=== PATIENT | female | born 1960 | race African-American/Black ===

== ENCOUNTER 2017-01-16 12:24 | Emergency (ER) | payer MEDICAID ==
[~2017-01-16] VITALS: Ht 154.9 cm; Wt 69.3 kg
[~2017-01-16 12:24] MED LIST: AMLO10TA4 PO; ASPI-1035 PO; CLON0.2T PO; INSLAN SQ; LISI40TA4 PO
[2017-01-16 13:51] LABS: EOSINOPHILS % 4.4 % (0.0-5.0); HEMATOCRIT. 36.6 % (36.0-48.0); HEMOGLOBIN. 12.1 g/dL (12.0-16.0); LYMPHOCYTES % 23.8 % (20.0-50.0); MEAN CORPUSCULAR HEMOGLOBIN 27.3 pg (28.0-32.0); MEAN CORPUSCULAR HGB CONC 33.1 g/dL (31.0-37.0); MEAN CORPUSCULAR VOLUME 82.6 fL (81.0-99.0); MEAN PLATELET VOLUME 8.3 fl (7.4-10.4); MONOCYTES % 5.4 % (2.0-8.0); NEUTROPHILS % 65.4 % (40.0-76.0); PLATELET 226 x1000/uL (130-400); RED BLOOD CELL COUNT 4.43 mill/uL (4.2-5.4); RED CELL DISTRIBUTION WIDTH 17.9 % (11.6-14.6)
[2017-01-16 13:55] LABS: CHLORIDE 95 mEq/L (98-107); INDEX HEMOLYSI 2 (1-3); INDEX ICTERIC 1 (1-4); INDEX LIPEMIC 1 (1-3)
[2017-01-16 14:00] LABS: INR 1.2; PROTHROMBIN TIME 12.9 sec
[2017-01-16 14:01] LABS: ALBUMIN 2.9 g/dL (3.4-5.0); ANION GAP 8; CALCIUM 8.7 mg/dL (8.5-10.1); CARBON DIOXIDE 34 mEq/L (21-32)
[2017-01-16 14:04] LABS: ALANINE AMINOTRANSFERASE 19 IU/L (13-61); eGFR 12 mL/min (>60)
[2017-01-16 14:07] LABS: UREA NITROGEN BLOOD 4 mg/dL (7-21)
[2017-01-16] MEDS ORDERED: LISINOPRIL 40MG TABLET PO ONE (17:00)
[2017-01-16] MEDS ORDERED: CLONIDINE 0.2MG TABLET PO ONE (17:00)
[2017-01-16] MEDS ORDERED: HYDRALAZINE 20MG/ML VIAL IV ONE (17:00)
[2017-01-16 17:45] VITALS: BP 180/66
== END 2017-01-16 18:10 | disposition home or self-care (01) ==
LOC: ER 13:34
DX: M79.645 Pain in left finger(s) (principal); N18.6 End stage renal disease; I12.0 Hypertensive chronic kidney disease with stage 5 chronic kidney disease or end stage renal disease; F12.10 Cannabis abuse, uncomplicated; E11.9 Type 2 diabetes mellitus without complications; Z99.2 Dependence on renal dialysis; Z79.82 Long term (current) use of aspirin; Z79.4 Long term (current) use of insulin
CPT/HCPCS: 36415; 73130; 80053; 85025; 85610; 87040; 99285

== ENCOUNTER 2017-06-03 14:12 | Inpatient (IN) | payer MEDICAID ==
[~2017-06-03] VITALS: Ht 154.9 cm; Wt 61.2 kg
[~2017-06-03 14:12] MED LIST changes: -ASPI-1035 PO; +ASPI-1159 PO; -CLON0.2T PO; -INSLAN SQ
[2017-06-03 16:46] LABS: HEMATOCRIT. 36.1 % (36.0-48.0); HEMOGLOBIN. 11.8 g/dL (12.0-16.0); MEAN CORPUSCULAR HEMOGLOBIN 28.1 pg (28.0-32.0); MEAN CORPUSCULAR VOLUME 85.9 fL (81.0-99.0); MEAN PLATELET VOLUME 8.3 fl (7.4-10.4); PLATELET 122 x1000/uL (130-400); RED CELL DISTRIBUTION WIDTH 16.6 % (11.6-14.6)
[2017-06-03 16:52] LABS: INR 1.5; PARTIAL THROMBOPLASTIN TIME 30.8 sec (23.4-31.0); PROTHROMBIN TIME 15.3 sec (9.4-11.6)
[2017-06-03 16:57] LABS: CARBON DIOXIDE 33 mEq/L (21-32); CHLORIDE 96 mEq/L (98-107); PHOSPHORUS 3.7 mg/dL (2.5-4.9)
[2017-06-03 17:02] LABS: TROPONIN I 0.02 ng/mL (0.00-0.04)
[2017-06-03 17:57] LABS: PLATELET ESTIMATE SLIGHTLY DECREASED
[2017-06-03] MEDS ORDERED: ACETAMINOPHEN 325MG TABLET PO STA (17:58)
[2017-06-03] MEDS ORDERED: SODIUM CHLORIDE 0.9% 500 ML IV ONE (17:58)
[2017-06-03] MEDS ORDERED: VANCOMYCIN 1 G PREMIX 200 ML IV ONE (18:00)
[2017-06-03] MEDS ORDERED: PIPERACILLIN/TAZ 3.375G PREMIX 50 ML IV ONE (18:00)
[2017-06-03] MEDS ORDERED: MORPHINE SULFATE 2 MG/ML CPJ (NOT FOR IM USE) IV ONE (18:45)
[2017-06-03] MEDS ORDERED: MORPHINE SULFATE 4 MG/ML CPJ (NOT FOR IM USE) IV NR (20:00)
[2017-06-04] VITALS (7 sets, daily range): BP systolic 88–106; BP diastolic 48–70
[2017-06-04] MEDS ORDERED: PIPERACILLIN/TAZ 3.375G PREMIX 50 ML IV SCH (02:00)
[2017-06-04] MEDS ORDERED: HYDROCODONE/ACETAMINOPHEN 5/325MG TABLET PO PRN (02:00)
[2017-06-04] MEDS ORDERED: CLONIDINE 0.1MG TABLET PO PRN (02:00)
[2017-06-04] MEDS: PIPERACILLIN/TAZ 2.25G PREMIX 50 ML IV SCH ×2 (04:27→20:35)
[2017-06-04] MEDS: DEXTROSE 50% WATER 50ML SYRINGE IV PRN (06:02)
[2017-06-04] MEDS: BLOOD SUGAR DIAGNOSTIC STRIP TEST SCH ×2 (06:08→20:48)
[2017-06-04] MEDS: INSULIN LISPRO 100 UNITS/ML SUBCUT SCH ×2 (06:08→20:48)
[2017-06-04 07:13] LABS: BASOPHILS % 0.1 % (0.0-2.0); EOSINOPHILS % 0.9 % (0.0-5.0); HEMOGLOBIN. 11.2 g/dL (12.0-16.0); LYMPHOCYTES % 8.5 % (20.0-50.0); MEAN CORPUSCULAR HEMOGLOBIN 27.9 pg (28.0-32.0); MONOCYTES % 6.1 % (2.0-8.0); NEUTROPHILS % 84.4 % (40.0-76.0); PLATELET 80 x1000/uL (130-400); RED BLOOD CELL COUNT 4.01 mill/uL (4.2-5.4); RED CELL DISTRIBUTION WIDTH 17.3 % (11.6-14.6)
[2017-06-04 07:41] LABS: MEAN CORPUSCULAR VOLUME 88.8 fL (81.0-99.0)
[2017-06-04] MEDS: AMLODIPINE 10MG TABLET PO SCH (09:00)
[2017-06-04] MEDS: HEPARIN 5000 UNITS/ML VIAL SUBCUT SCH ×2 (10:37→21:43)
[2017-06-04] MEDS: ASPIRIN 81MG EC TABLET PO SCH (10:38)
[2017-06-04] MEDS: LISINOPRIL 40MG TABLET PO SCH (10:39)
[2017-06-04] MEDS: ACETAMINOPHEN 325MG TABLET PO PRN ×2 (12:43→20:34)
[2017-06-04] MEDS: DEXT 5%/0.45% NACL 1000ML 1,000 ML IV SCH (21:43)
[2017-06-05] VITALS: BP 95/55
[2017-06-05 04:00] VITALS: BP 96/51
[2017-06-05] MEDS: PIPERACILLIN/TAZ 2.25G PREMIX 50 ML IV SCH ×3 (04:00→20:51)
[2017-06-05] MEDS: BLOOD SUGAR DIAGNOSTIC STRIP TEST SCH ×4 (05:45→20:53)
[2017-06-05] MEDS: INSULIN LISPRO 100 UNITS/ML SUBCUT SCH ×4 (05:47→20:53)
[2017-06-05 07:30] LABS: PHOSPHORUS 3.8 mg/dL (2.5-4.9)
[2017-06-05 08:25] VITALS: BP 91/54
[2017-06-05] MEDS: AMLODIPINE 10MG TABLET PO SCH (09:00)
[2017-06-05] MEDS: HEPARIN 5000 UNITS/ML VIAL SUBCUT SCH (09:00)
[2017-06-05] MEDS: LISINOPRIL 40MG TABLET PO SCH (09:00)
[2017-06-05] MEDS: FOLIC ACID/VITAMIN B COMP W-C TABLET PO SCH (09:39)
[2017-06-05] MEDS: ASPIRIN 81MG EC TABLET PO SCH (09:39)
[2017-06-05 09:44] LABS: BASOPHILS % 0.1 % (0.0-2.0); EOSINOPHILS % 0.2 % (0.0-5.0); HEMATOCRIT. 34.5 % (36.0-48.0); LYMPHOCYTES % 8.5 % (20.0-50.0); MEAN CORPUSCULAR HEMOGLOBIN 27.6 pg (28.0-32.0); MEAN CORPUSCULAR VOLUME 86.6 fL (81.0-99.0); MEAN PLATELET VOLUME 8.5 fl (7.4-10.4); NEUTROPHILS % 83.2 % (40.0-76.0); RED BLOOD CELL COUNT 3.99 mill/uL (4.2-5.4); RED CELL DISTRIBUTION WIDTH 17.4 % (11.6-14.6)
[2017-06-05 09:54] LABS: PLATELET 47 x1000/uL (130-400)
[2017-06-05 10:25] LABS: PLATELET ESTIMATE MARKEDLY DECREASED
[2017-06-05 12:00] VITALS: BP 100/61
[2017-06-05] MEDS ORDERED: VANCOMYCIN 750 MG PREMIX 150 ML IV NR (14:00)
[2017-06-05] MEDS ORDERED: SODIUM CHLORIDE 0.9% 250 ML IV ONE (15:45)
[2017-06-05] MEDS: DEXT 5%/0.45% NACL 1000ML 1,000 ML IV SCH (16:23)
[2017-06-05 16:47] VITALS: BP 84/45
[2017-06-05 20:00] VITALS: BP 92/53
[2017-06-05 20:37] LABS: TOTAL IRON BINDING CAPACITY 186 ug/dL (250-450)
[2017-06-05 20:59] LABS: FERRITIN 526 ng/mL (10-291)
[2017-06-05 21:11] LABS: HEPATITIS B SURFACE ANTIGEN NEGATIVE
[2017-06-05 21:38] LABS: HEPATITIS B CORE AB IGM NEGATIVE
[2017-06-05 21:39] LABS: HEPATITIS A AB IGM NEGATIVE (NEGATIVE)
[2017-06-05] MEDS: GABAPENTIN 300MG CAPSULE PO SCH (22:00)
[2017-06-05 22:16] LABS: VITAMIN B12 SERUM > 2000.0 pg/mL (211-911)
[2017-06-06] VITALS (7 sets, daily range): BP systolic 80–95; BP diastolic 43–54
[2017-06-06] MEDS: PIPERACILLIN/TAZ 2.25G PREMIX 50 ML IV SCH (04:29)
[2017-06-06 06:51] LABS: BASOPHILS % 0.1 % (0.0-2.0); EOSINOPHILS % 0.7 % (0.0-5.0); HEMATOCRIT. 33.2 % (36.0-48.0); HEMOGLOBIN. 10.9 g/dL (12.0-16.0); LYMPHOCYTES % 15.1 % (20.0-50.0); MEAN CORPUSCULAR VOLUME 85.2 fL (81.0-99.0); MEAN PLATELET VOLUME 8.7 fl (7.4-10.4); MONOCYTES % 5.1 % (2.0-8.0); RED CELL DISTRIBUTION WIDTH 17.4 % (11.6-14.6)
[2017-06-06] MEDS: BLOOD SUGAR DIAGNOSTIC STRIP TEST SCH ×4 (07:10→21:12)
[2017-06-06] MEDS: INSULIN LISPRO 100 UNITS/ML SUBCUT SCH ×4 (07:26→21:00)
[2017-06-06] MEDS: GABAPENTIN 300MG CAPSULE PO SCH ×3 (07:34→23:01)
[2017-06-06 08:05] LABS: PLATELET 45 x1000/uL (130-400)
[2017-06-06] MEDS: ACETAMINOPHEN 325MG TABLET PO PRN (09:30)
[2017-06-06] MEDS: FOLIC ACID/VITAMIN B COMP W-C TABLET PO SCH (09:30)
[2017-06-06] MEDS ORDERED: CEFAZOLIN SODIUM 1000MG/VIAL IV SCH (14:00)
[2017-06-06] MEDS ORDERED: CEFAZOLIN 1000MG PREMIX 50 ML IV NR (14:30)
[2017-06-06] MEDS ORDERED: SODIUM CHLORIDE 0.9% 250 ML IV NR (20:30)
[2017-06-06] MEDS ORDERED: ALBUMIN HUMAN 12.5GM/50ML (25%) IV NR (21:00)
[2017-06-06] MEDS: DEXT 5%/0.45% NACL 1000ML 1,000 ML IV SCH (23:00)
[2017-06-07] VITALS (12 sets, daily range): BP systolic 73–147; BP diastolic 35–70
[2017-06-07] MEDS: GABAPENTIN 300MG CAPSULE PO SCH ×3 (06:19→22:00)
[2017-06-07 06:49] LABS: BASOPHILS % 0.1 % (0.0-2.0); EOSINOPHILS % 0.8 % (0.0-5.0); HEMOGLOBIN. 10.6 g/dL (12.0-16.0); LYMPHOCYTES % 17.4 % (20.0-50.0); MEAN CORPUSCULAR HEMOGLOBIN 28.1 pg (28.0-32.0); MEAN CORPUSCULAR VOLUME 84.7 fL (81.0-99.0); MEAN PLATELET VOLUME 8.6 fl (7.4-10.4); MONOCYTES % 4.4 % (2.0-8.0); NEUTROPHILS % 77.3 % (40.0-76.0); RED BLOOD CELL COUNT 3.78 mill/uL (4.2-5.4); RED CELL DISTRIBUTION WIDTH 17.2 % (11.6-14.6)
[2017-06-07 06:56] LABS: PLATELET 26 x1000/uL (130-400)
[2017-06-07 07:16] LABS: PHOSPHORUS 3.6 mg/dL (2.5-4.9)
[2017-06-07] MEDS: BLOOD SUGAR DIAGNOSTIC STRIP TEST SCH ×4 (07:31→21:00)
[2017-06-07] MEDS: INSULIN LISPRO 100 UNITS/ML SUBCUT SCH ×4 (08:00→21:00)
[2017-06-07] MEDS: FOLIC ACID/VITAMIN B COMP W-C TABLET PO SCH (08:51)
[2017-06-07] MEDS ORDERED: LIDOCAINE HCL 1% 20ML VIAL (Pyxis) INJ ONE ×2 (11:08→14:55)
[2017-06-07] MEDS ORDERED: MIDODRINE HCL 5MG TABLET PO NR (11:30)
[2017-06-07] MEDS ORDERED: SODIUM CHLORIDE 0.9% 250 ML IV ONE (11:30)
[2017-06-07 13:50] LABS: PLATELET ESTIMATE MARKEDLY DECREASED
[2017-06-07 14:39] LABS: BG BASE EXCESS -0.5 mmol/L (-2.0-2.0); BG CARBOXYHEMOGLOBIN 0.7 % (0.5-1.5); BG DEOXYHEMOGLOBIN 14.7 % (0.0-5.0); BG FRACTION INSPIRED OXYGEN 28; BG HCO3 ACT 25.8 mmol/L (22.0-26.0); BG METHEMOGLOBIN 0.2 % (0.0-1.5); BG OXYGEN SATURATION 85.2 % (92.0-98.5); BG OXYHEMOGLOBIN 84.4 % (94.0-97.0); BG PCO2 49.4 mmHg (35.0-45.0); BG PH 7.336 (7.350-7.450); BG PO2 54.9 mmHg (75.0-100.0); BG SAMPLE SITE RIGHT BRACHIAL; BG TOTAL HEMOGLOBIN 12.6 g/dL (12.0-18.0); BG VENT MODE NASAL CANNULA
[2017-06-07] MEDS ORDERED: IOHEXOL-300 50 ML BOTTLE IV ONE (14:55)
[2017-06-07] MEDS ORDERED: IOHEXOL-300 100 ML BOTTLE ONE (14:55)
[2017-06-07] MEDS ORDERED: SODIUM BICARBONATE 4% (2.4MEQ) 5ML VIAL IV ONE (14:55)
[2017-06-07] MEDS ORDERED: DOPAMINE 400MG PREMIX 250 ML IV SCH (16:45)
[2017-06-07 17:17] LABS: TROPONIN I < 0.02 ng/mL (0.00-0.04)
[2017-06-07 17:18] LABS: CREATINE KINASE MB FRACTION 3.1 ng/mL (0.5-3.6)
[2017-06-07] MEDS: CEFAZOLIN 1000MG PREMIX 50 ML IV SCH (17:37)
[2017-06-07] MEDS: DEXT 5%/0.45% NACL 1000ML 1,000 ML IV SCH (17:37)
[2017-06-07] MEDS ORDERED: ALBUMIN HUMAN 12.5GM/50ML (25%) IV NR (18:00)
[2017-06-08] VITALS (51 sets, daily range): BP systolic 31–154; BP diastolic 13–121
[2017-06-08] MEDS: GABAPENTIN 300MG CAPSULE PO SCH ×3 (06:00→22:00)
[2017-06-08 06:31] LABS: HEMATOCRIT. 30.1 % (36.0-48.0); HEMOGLOBIN. 9.9 g/dL (12.0-16.0); MEAN CORPUSCULAR HEMOGLOBIN 28.3 pg (28.0-32.0); MEAN CORPUSCULAR VOLUME 86.1 fL (81.0-99.0); MEAN PLATELET VOLUME 8.9 fl (7.4-10.4); RED BLOOD CELL COUNT 3.49 mill/uL (4.2-5.4); RED CELL DISTRIBUTION WIDTH 17.2 % (11.6-14.6)
[2017-06-08 07:17] LABS: PLATELET 35 x1000/uL (130-400)
[2017-06-08] MEDS: BLOOD SUGAR DIAGNOSTIC STRIP TEST SCH ×4 (07:30→21:32)
[2017-06-08] MEDS: INSULIN LISPRO 100 UNITS/ML SUBCUT SCH ×4 (08:38→21:36)
[2017-06-08] MEDS: FOLIC ACID/VITAMIN B COMP W-C TABLET PO SCH (08:39)
[2017-06-08] MEDS: MIDODRINE HCL 5MG TABLET PO SCH ×3 (08:39→17:00)
[2017-06-08] MEDS: PANTOPRAZOLE SODIUM 40 MG/VIAL IV SCH (08:39)
[2017-06-08] MEDS: IPRATROPIUM/ALBUTEROL 0.5-3(2.5)MG/3ML NEB HHN SCH ×3 (08:43→19:45)
[2017-06-08] MEDS ORDERED: ALBUMIN HUMAN 12.5G/250ML (5%) IV NR (09:30)
[2017-06-08 11:40] LABS: NUCLEATED RED BLOOD CELLS 1 /100 WBC; PLATELET ESTIMATE MARKEDLY DECREASED
[2017-06-08] MEDS ORDERED: NOREPINEPHRINE 8 MG in DEXT 5% WATER 242 ML IV PRN (12:00)
[2017-06-08] MEDS: DEXT 5%/0.45% NACL 1000ML 1,000 ML IV SCH (12:34)
[2017-06-08] MEDS ORDERED: ETOMIDATE 2MG/ML 10ML VIAL IV ONE (13:44)
[2017-06-08] MEDS ORDERED: SUCCINYLCHOLINE CHLORIDE 200MG/10ML VIAL IV ONE (13:44)
[2017-06-08] MEDS ORDERED: PHENYLEPHRINE 20 MG in DEXT 5% WATER 498 ML IV PRN (14:00)
[2017-06-08] MEDS ORDERED: SODIUM CHLORIDE 0.9% 250 ML IV NR (14:15)
[2017-06-08 14:33] LABS: BG BASE EXCESS -10.3 mmol/L (-2.0-2.0); BG CARBOXYHEMOGLOBIN 0.4 % (0.5-1.5); BG DEOXYHEMOGLOBIN 16.4 % (0.0-5.0); BG FRACTION INSPIRED OXYGEN 100; BG HCO3 ACT 16.2 mmol/L (22.0-26.0); BG METHEMOGLOBIN 0.3 % (0.0-1.5); BG OXYGEN SATURATION 83.5 % (92.0-98.5); BG OXYHEMOGLOBIN 82.9 % (94.0-97.0); BG PCO2 37.8 mmHg (35.0-45.0); BG PO2 58.9 mmHg (75.0-100.0); BG SAMPLE SITE RIGHT BRACHIAL; BG TOTAL HEMOGLOBIN 12.3 g/dL (12.0-18.0); BG VENT MODE MASK - NRB
[2017-06-08] MEDS ORDERED: PROPOFOL 10MG/ML 100ML 100 ML IV PRN (15:00)
[2017-06-08 15:34] LABS: BG BASE EXCESS -4.8 mmol/L (-2.0-2.0); BG CARBOXYHEMOGLOBIN 0.2 % (0.5-1.5); BG DEOXYHEMOGLOBIN 0.6 % (0.0-5.0); BG FRACTION INSPIRED OXYGEN 100; BG HCO3 ACT 20.4 mmol/L (22.0-26.0); BG METHEMOGLOBIN 0.3 % (0.0-1.5); BG OXYGEN SATURATION 99.4 % (92.0-98.5); BG OXYHEMOGLOBIN 98.9 % (94.0-97.0); BG PCO2 38.4 mmHg (35.0-45.0); BG PH 7.344 (7.350-7.450); BG PO2 207.7 mmHg (75.0-100.0); BG SAMPLE SITE RIGHT BRACHIAL; BG TIDAL VOLUME(mL) 500 mL; BG TOTAL HEMOGLOBIN 12.1 g/dL (12.0-18.0); BG VENT MODE VENT - A/C; BG VENT RATE 12 set
[2017-06-08] MEDS ORDERED: NOREPINEPHRINE 16 MG in DEXT 5% WATER 234 ML IV PRN (16:45)
[2017-06-08] MEDS: CEFAZOLIN 1000MG PREMIX 50 ML IV SCH (18:04)
[2017-06-08 20:24] LABS: HEMATOCRIT 35.6 % (36.0-48.0); HEMOGLOBIN 11.4 g/dL (12.0-16.0)
[2017-06-08 20:37] LABS: PHOSPHORUS 4.8 mg/dL (2.5-4.9)
[2017-06-08] MEDS: PHENYLEPHRINE 40 MG in DEXT 5% WATER 246 ML IV PRN (20:54)
[2017-06-08] MEDS: NOREPINEPHRINE 16 MG in DEXT 5% WATER 234 ML IV PRN (21:01)
[2017-06-08] MEDS ORDERED: VANCOMYCIN 1 G PREMIX 200 ML IV NR (23:00)
[2017-06-09] VITALS (99 sets, daily range): BP systolic 56–160; BP diastolic 28–108
[2017-06-09] MEDS: PHENYLEPHRINE 40 MG in DEXT 5% WATER 246 ML IV PRN ×2 (00:39→20:27)
[2017-06-09] MEDS: PIPERACILLIN/TAZ 2.25G PREMIX 50 ML IV SCH ×4 (00:45→23:54)
[2017-06-09] MEDS: IPRATROPIUM/ALBUTEROL 0.5-3(2.5)MG/3ML NEB HHN SCH ×3 (02:10→13:10)
[2017-06-09] MEDS: NOREPINEPHRINE 16 MG in DEXT 5% WATER 234 ML IV PRN ×3 (02:33→20:20)
[2017-06-09] MEDS: GABAPENTIN 300MG CAPSULE PO SCH ×3 (06:00→22:00)
[2017-06-09] MEDS: DEXT 5%/0.45% NACL 1000ML 1,000 ML IV SCH (06:45)
[2017-06-09] MEDS: BLOOD SUGAR DIAGNOSTIC STRIP TEST SCH ×4 (07:00→20:58)
[2017-06-09] MEDS: INSULIN LISPRO 100 UNITS/ML SUBCUT SCH ×4 (07:00→20:58)
[2017-06-09] MEDS: DEXTROSE 50% WATER 50ML SYRINGE IV PRN (07:03)
[2017-06-09 07:32] LABS: BG BASE EXCESS -12.5 mmol/L (-2.0-2.0); BG CARBOXYHEMOGLOBIN 0.2 % (0.5-1.5); BG DEOXYHEMOGLOBIN 4.4 % (0.0-5.0); BG FRACTION INSPIRED OXYGEN 60; BG HCO3 ACT 12.6 mmol/L (22.0-26.0); BG METHEMOGLOBIN 0.2 % (0.0-1.5); BG OXYGEN SATURATION 95.6 % (92.0-98.5); BG OXYHEMOGLOBIN 95.2 % (94.0-97.0); BG PCO2 26.9 mmHg (35.0-45.0); BG PH 7.289 (7.350-7.450); BG PO2 92.3 mmHg (75.0-100.0); BG SAMPLE SITE RIGHT RADIAL; BG TIDAL VOLUME(mL) 500 mL; BG TOTAL HEMOGLOBIN 10.7 g/dL (12.0-18.0); BG VENT MODE VENT - A/C; BG VENT RATE 12 set
[2017-06-09] MEDS: PANTOPRAZOLE SODIUM 40 MG/VIAL IV SCH (08:37)
[2017-06-09] MEDS: FOLIC ACID/VITAMIN B COMP W-C TABLET PO SCH (09:00)
[2017-06-09] MEDS: MIDODRINE HCL 5MG TABLET PO SCH ×3 (09:00→17:00)
[2017-06-09 09:23] LABS: HEMOGLOBIN. 11.3 g/dL (12.0-16.0); MEAN CORPUSCULAR HEMOGLOBIN 28.1 pg (28.0-32.0); MEAN CORPUSCULAR VOLUME 88.7 fL (81.0-99.0); MEAN PLATELET VOLUME 10.2 fl (7.4-10.4); RED BLOOD CELL COUNT 4.01 mill/uL (4.2-5.4); RED CELL DISTRIBUTION WIDTH 18.2 % (11.6-14.6)
[2017-06-09 09:29] LABS: HEMATOCRIT. 34.6 % (36.0-48.0)
[2017-06-09 09:30] LABS: PLATELET 45 x1000/uL (130-400)
[2017-06-09 10:15] LABS: NUCLEATED RED BLOOD CELLS 1 /100 WBC; PLATELET ESTIMATE DECREASED
[2017-06-09] MEDS ORDERED: SODIUM BICARBONATE 8.4% 1 MEQ/ML 50ML SYR IV SCH ×2 (10:30)
[2017-06-09 15:42] LABS: BG BASE EXCESS -13.6 mmol/L (-2.0-2.0); BG CARBOXYHEMOGLOBIN 0.3 % (0.5-1.5); BG DEOXYHEMOGLOBIN 8.5 % (0.0-5.0); BG FRACTION INSPIRED OXYGEN 60; BG HCO3 ACT 13.1 mmol/L (22.0-26.0); BG METHEMOGLOBIN 0.2 % (0.0-1.5); BG OXYGEN SATURATION 91.5 % (92.0-98.5); BG PCO2 33.4 mmHg (35.0-45.0); BG PH 7.213 (7.350-7.450); BG PO2 80.1 mmHg (75.0-100.0); BG SAMPLE SITE RIGHT BRACHIAL; BG TIDAL VOLUME(mL) 500 mL; BG TOTAL HEMOGLOBIN 10.3 g/dL (12.0-18.0); BG VENT MODE VENT - A/C; BG VENT RATE 12 set
[2017-06-09] MEDS ORDERED: SODIUM BICARBONATE 8.4% 1 MEQ/ML 50ML SYR IV NR ×4 (16:18→18:30)
[2017-06-09 16:30] LABS: HEMATOCRIT 32.3 % (36.0-48.0); HEMOGLOBIN 10.3 g/dL (12.0-16.0)
[2017-06-09] MEDS: SODIUM BICARBONATE 100 MEQ in DEXT 5%/0.2% NACL 1,000 ML IV SCH (16:39)
[2017-06-09 17:45] LABS: BG BASE EXCESS -10.6 mmol/L (-2.0-2.0); BG CARBOXYHEMOGLOBIN 0.3 % (0.5-1.5); BG DEOXYHEMOGLOBIN 8.1 % (0.0-5.0); BG FRACTION INSPIRED OXYGEN 60; BG METHEMOGLOBIN 0.2 % (0.0-1.5); BG OXYGEN SATURATION 91.9 % (92.0-98.5); BG OXYHEMOGLOBIN 91.4 % (94.0-97.0); BG PH 7.288 (7.350-7.450); BG PO2 74.9 mmHg (75.0-100.0); BG SAMPLE SITE RIGHT BRACHIAL; BG TIDAL VOLUME(mL) 500 mL; BG TOTAL HEMOGLOBIN 10.1 g/dL (12.0-18.0); BG VENT MODE VENT - A/C; BG VENT RATE 12 set
[2017-06-09 21:53] LABS: BG BASE EXCESS -11.2 mmol/L (-2.0-2.0); BG CARBOXYHEMOGLOBIN 0.1 % (0.5-1.5); BG DEOXYHEMOGLOBIN 4.2 % (0.0-5.0); BG FRACTION INSPIRED OXYGEN 60; BG HCO3 ACT 12.8 mmol/L (22.0-26.0); BG METHEMOGLOBIN 0.3 % (0.0-1.5); BG OXYGEN SATURATION 95.8 % (92.0-98.5); BG OXYHEMOGLOBIN 95.4 % (94.0-97.0); BG PCO2 23.5 mmHg (35.0-45.0); BG PH 7.353 (7.350-7.450); BG PO2 84.9 mmHg (75.0-100.0); BG SAMPLE SITE RIGHT FEMORAL; BG TIDAL VOLUME(mL) 600 mL; BG TOTAL HEMOGLOBIN 10.4 g/dL (12.0-18.0); BG VENT MODE VENT - A/C; BG VENT RATE 18 set
[2017-06-10] VITALS (45 sets, daily range): BP systolic 59–128; BP diastolic 26–87
[2017-06-10] MEDS: PHENYLEPHRINE 40 MG in DEXT 5% WATER 246 ML IV PRN ×4 (01:20→12:49)
[2017-06-10] MEDS: GABAPENTIN 300MG CAPSULE PO SCH ×2 (05:21→13:08)
[2017-06-10 05:29] LABS: HEMATOCRIT. 30.4 % (36.0-48.0); HEMOGLOBIN. 9.3 g/dL (12.0-16.0); MEAN CORPUSCULAR HEMOGLOBIN 28.3 pg (28.0-32.0); MEAN CORPUSCULAR VOLUME 92.3 fL (81.0-99.0); MEAN PLATELET VOLUME 9.1 fl (7.4-10.4); RED CELL DISTRIBUTION WIDTH 18.4 % (11.6-14.6)
[2017-06-10 05:48] LABS: PLATELET 38 x1000/uL (130-400)
[2017-06-10] MEDS: DEXTROSE 50% WATER 50ML SYRINGE IV PRN ×5 (05:58→13:25)
[2017-06-10] MEDS: BLOOD SUGAR DIAGNOSTIC STRIP TEST SCH ×2 (06:02→11:30)
[2017-06-10 06:29] LABS: CHLORIDE 90 mEq/L (98-107)
[2017-06-10] MEDS: NOREPINEPHRINE 16 MG in DEXT 5% WATER 234 ML IV PRN (06:38)
[2017-06-10 06:44] LABS: CARBON DIOXIDE 10 mEq/L (21-32)
[2017-06-10] MEDS: INSULIN LISPRO 100 UNITS/ML SUBCUT SCH ×2 (07:00→12:00)
[2017-06-10 07:19] LABS: ATYPICAL LYMPHOCYTES 1; NUCLEATED RED BLOOD CELLS 17 /100 WBC
[2017-06-10 07:20] LABS: PLATELET ESTIMATE MARKEDLY DECREASED
[2017-06-10 08:04] LABS: BG BASE EXCESS -22.5 mmol/L (-2.0-2.0); BG CARBOXYHEMOGLOBIN 0.3 % (0.5-1.5); BG DEOXYHEMOGLOBIN 8.9 % (0.0-5.0); BG FRACTION INSPIRED OXYGEN 60; BG HCO3 ACT 6.1 mmol/L (22.0-26.0); BG METHEMOGLOBIN 0.4 % (0.0-1.5); BG OXYHEMOGLOBIN 90.4 % (94.0-97.0); BG PCO2 22.2 mmHg (35.0-45.0); BG PH 7.057 (7.350-7.450); BG SAMPLE SITE RIGHT BRACHIAL; BG TIDAL VOLUME(mL) 600 mL; BG TOTAL HEMOGLOBIN 9.5 g/dL (12.0-18.0); BG VENT MODE VENT - A/C; BG VENT RATE 18 set
[2017-06-10] MEDS: FOLIC ACID/VITAMIN B COMP W-C TABLET PO SCH (08:42)
[2017-06-10] MEDS: MIDODRINE HCL 5MG TABLET PO SCH ×2 (08:42→13:00)
[2017-06-10] MEDS: PANTOPRAZOLE SODIUM 40 MG/VIAL IV SCH (08:48)
[2017-06-10] MEDS: PIPERACILLIN/TAZ 2.25G PREMIX 50 ML IV SCH (08:48)
[2017-06-10] MEDS: IPRATROPIUM/ALBUTEROL 0.5-3(2.5)MG/3ML NEB HHN SCH (08:50)
[2017-06-10] MEDS ORDERED: SODIUM BICARBONATE 7.5% 0.9 MEQ/ML 50ML SYR IV ONE (09:35)
[2017-06-10] MEDS ORDERED: EPINEPHRINE 0.1MG/ML (1:10,000) 10ML SYR ONE (09:35)
[2017-06-10] MEDS: DEXT 5%/0.45% NACL 1000ML 1,000 ML IV SCH (12:48)
[2017-06-10] MEDS: SODIUM BICARBONATE 100 MEQ in DEXT 5%/0.2% NACL 1,000 ML IV SCH (12:49)
== END 2017-06-10 20:30 | disposition expired | DRG 720 ==
LOC: ER 15:49 → 8WST 18:25 → EDBEDREQ 18:28 → ENRESERV 21:11 → 5EST 06-06 21:44 → MICUNO 06-08 10:50 → MICUSO 06-08 21:06
PROVIDERS: ADMIT Internal Medicine; ATTEND Internal Medicine
PROC: 5A1D70Z Performance of Urinary Filtration, Intermittent, Less than 6 Hours Per Day (ICD-10-PCS; 2017-06-05)
PROC: 5A1D70Z Performance of Urinary Filtration, Intermittent, Less than 6 Hours Per Day (ICD-10-PCS; 2017-06-06)
PROC: 05H533Z Insertion of Infusion Device into Right Subclavian Vein, Percutaneous Approach (ICD-10-PCS; principal; 2017-06-07)
PROC: B546ZZA Ultrasonography of Right Subclavian Vein, Guidance (ICD-10-PCS; 2017-06-07)
PROC: 5A1945Z Respiratory Ventilation, 24-96 Consecutive Hours (ICD-10-PCS; 2017-06-08)
PROC: 0BH17EZ Insertion of Endotracheal Airway into Trachea, Via Natural or Artificial Opening (ICD-10-PCS; 2017-06-08)
PROC: 5A1D70Z Performance of Urinary Filtration, Intermittent, Less than 6 Hours Per Day (ICD-10-PCS; 2017-06-09)
PROC: 5A12012 Performance of Cardiac Output, Single, Manual (ICD-10-PCS; 2017-06-10)
DX: A41.59 Other Gram-negative sepsis (principal); J96.91 Respiratory failure, unspecified with hypoxia; R65.21 Severe sepsis with septic shock; G92 Toxic encephalopathy; E43 Unspecified severe protein-calorie malnutrition; I13.2 Hypertensive heart and chronic kidney disease with heart failure and with stage 5 chronic kidney disease, or end stage renal disease; J18.9 Pneumonia, unspecified organism; T87.53 Necrosis of amputation stump, right lower extremity; K92.2 Gastrointestinal hemorrhage, unspecified; D68.4 Acquired coagulation factor deficiency; I46.9 Cardiac arrest, cause unspecified; N18.6 End stage renal disease; M31.9 Necrotizing vasculopathy, unspecified; R62.7 Adult failure to thrive; E11.22 Type 2 diabetes mellitus with diabetic chronic kidney disease; I50.9 Heart failure, unspecified; E11.40 Type 2 diabetes mellitus with diabetic neuropathy, unspecified; E11.51 Type 2 diabetes mellitus with diabetic peripheral angiopathy without gangrene; D64.9 Anemia, unspecified; D63.8 Anemia in other chronic diseases classified elsewhere; R40.2430 Glasgow coma scale score 3-8, unspecified time; B19.20 Unspecified viral hepatitis C without hepatic coma; I77.9 Disorder of arteries and arterioles, unspecified; I82.431 Acute embolism and thrombosis of right popliteal vein; J98.11 Atelectasis; E87.2 Acidosis; E87.1 Hypo-osmolality and hyponatremia; Y83.5 Amputation of limb(s) as the cause of abnormal reaction of the patient, or of later complication, without mention of misadventure at the time of the procedure; Z53.9 Procedure and treatment not carried out, unspecified reason; D75.82 Heparin induced thrombocytopenia (HIT); T45.515A Adverse effect of anticoagulants, initial encounter; Y92.89 Other specified places as the place of occurrence of the external cause; Z89.511 Acquired absence of right leg below knee; Z99.2 Dependence on renal dialysis; Z98.891 History of uterine scar from previous surgery; Z89.512 Acquired absence of left leg below knee; Z68.25 Body mass index [BMI] 25.0-25.9, adult; I43 Cardiomyopathy in diseases classified elsewhere
CPT/HCPCS: 36415; 36569; 36600; 70450; 71010; 73562; 76937; 78580; 80048; 80053; 80202; 82375; 82542; 82553; 82607; 82728; 82746; 82805; 82962; 83540; 83550; 83605; 83690; 83735; 84100; 84145; 84478; 84484; 85014; 85018; 85025; 85044; 85610; 85730; 86022; 86705; 86709; 86803; 86850; 86900; 87040; 87070; 87077; 87186; 87205; 87340; 93005; 93306; 93923; 93970; 94002; 94003; 94640; 96361; 96365; 96366; 96367; 96375; 99291; C1725; C1893; C9113; J0171; J0330; J0690; J1265; J1644; J1815; J2270; J2370; J2543; J2704; J3370; J3490; J7030; J7040; J7042; J7050; J7060; J7620; P9041; P9047; Q9967